=== PATIENT | female | born 1990 | race Hispanic/Latino ===

== ENCOUNTER 2018-01-04 19:23 | Emergency (ER) | payer MEDICAID ==
[2018-01-04 20:07] LABS: Bilirubin Negative (Negative); Blood, Urine Large (Negative); Clarity Cloudy (Clear); Glucose, Urine (Dipstick) Negative (Negative); Leukocyte Trace (Negative); Nitrite Negative (Negative); Protein, Urine (Dipstick) 100 mg/dL (Neg-Trace); Specific Gravity, Urine 1.023 (1.002-1.036); Urobilinogen 0.2 mg/dL (0.2-1.0)
[2018-01-04 20:07] LABS: #Basophils 0.1 thou/uL (0.0-0.2); #Eosinphils 0.2 thou/uL (0.0-0.7); #Lymphocytes 2.3 thou/uL (1.20-3.40); #Monocytes 0.6 thou/uL (0.11-0.59); #Neutrophils 3.6 thou/uL (1.40-6.50); %Basophils 1.8 % (0.0-1.0); %Eosinophils 2.6 % (0.0-10.0); %Lymphocytes 33.7 % (21.0-51.0); %Neutrophils 52.9 % (42.0-75.0); Hemoglobin 12.2 g/dL (12.0-16.0); Mean Corpuscular HGB CONC 33.3 g/dL (32.0-36.0); Mean Corpuscular Hemoglobin 28.3 pg (27.0-31.0); Mean Corpuscular Volume 84.8 fL (78.0-98.0); Platelet Count 189 thou/uL (130-400); Red Blood Cell (RBC) Count 4.33 mill/uL (4.20-5.40); White Blood Cell (WBC) Count 6.7 thou/uL (4.8-10.8)
[2018-01-04 20:08] LABS: Pregnancy Test - Urine (BHCG) POSITIVE (Negative); Pregu Control Background? CLEAR/WHITE (CLR/WHITE); Pregu Control Bar Appear? YES (CONTROL BAR); Specific Gravity 1.023 (1.002-1.036)
[2018-01-04 20:10] LABS: Bacteria/HPF 3+ HPF (None Seen)
--- NOTE | 2018-01-04 22:08 | ULT ---
PELVIC ULTRASOUND: HISTORY: Vaginal bleeding. Quantitative hCG of 9100. FINDINGS: Real-time imaging of the pelvis was obtained transabdominally, as well as with an endovaginal probe. This shows an intrauterine gestational sac and what appears to be a pole. The gestational sac measurement is 2.6 cm, corresponding to 7 weeks 4 days. [place]-rump length measurement is 5.9 mm, co rresponding to 6 weeks 3 days. No heart tones are detected. The right and left adnexa are unremarkable in appearance. DOPPLER EVALUATION WITH SPECTRAL ANALYSIS: Normal flow is shown to both adnexa. IMPRESSION: 1. Intrauterine gestational sac and what appears to be a somewhat difficult to visualize pole. No heart tones are detected. 2. [place]-rump length measurement would correspond to 6 weeks 3 days, but it may be a slightly earlie r , as it is somewhat difficult to measure. This still could represent demise, but co uld just represent early . Follow-up ultrasound would be suggested, based on clinical findi ngs. POS: DESTINY
== END 2018-01-04 21:33 | disposition home or self-care (01) ==
LOC: SCSER 19:23
DX: O20.9 Hemorrhage in early pregnancy, unspecified (principal); Z3A.16 16 weeks gestation of pregnancy
CPT/HCPCS: 36415; 76856; 81003; 81015; 81025; 84702; 85025; 86900; 86901